=== PATIENT | male | born 1995 | race Caucasian/White ===

== ENCOUNTER 2017-03-29 10:59 | Emergency (ER) | payer OTHER ==
[2017-03-29 13:52] LABS: UA SPECIFIC GRAVITY 1.015 (1.005-1.035); microscopic required? YES; urine erythrocyte NEGATIVE (NEGATIVE)
[2017-03-29 13:59] VITALS: BP 120/79
== END 2017-03-29 13:59 | disposition home or self-care (01) ==
LOC: ED 10:59
PROVIDERS: Emergency Medicine
DX: R36.9 Urethral discharge, unspecified (principal); R30.0 Dysuria; R35.0 Frequency of micturition
CPT/HCPCS: 87491; 87591; J0696

== ENCOUNTER 2018-03-23 09:57 | Emergency (ER) | payer OTHER ==
[~2018-03-23] VITALS: Ht 162.6 cm; Wt 59.9 kg
[2018-03-23 10:01] VITALS: BP 131/74; Ht 162.6 cm; Wt 59.9 kg
== END 2018-03-23 10:28 | disposition home or self-care (01) ==
LOC: ED 09:57
DX: B00.89 Other herpesviral infection (principal)

== ENCOUNTER 2018-04-28 03:56 | Emergency (ER) | payer OTHER ==
[~2018-04-28] VITALS: Ht 165.1 cm; Wt 72.6 kg
[2018-04-28 04:04] VITALS: Ht 165.1 cm; Wt 72.6 kg
[2018-04-28 05:02] LABS: PLATELET COUNT 359 x10^3mcL (130-400); RED CELL DISTRIBUTION WIDTH 12.8 % (11.5-14.5)
[2018-04-28 05:16] LABS: CALCIUM 8.9 mg/dL (8.5-10.1); CARBON DIOXIDE 24.1 mmol/L (21-32); CHLORIDE SERUM 105 mmol/L (98-107); GFR1 > 60 mL/min; GLUCOSE SERUM 98 mg/dL (74-106); POTASSIUM SERUM 3.9 mmol/L (3.5-5.1); SODIUM SERUM 138 mmol/L (136-145)
[2018-04-28 05:22] LABS: ALBUMIN 4.2 g/dL (3.4-5.0); ALKALINE PHOSPHATASE 126 U/L (46-116); ALT/SGPT 18 U/L (16-63); AST/SGOT 27 U/L (15-37); BILIRUBIN TOTAL 0.64 mg/dL (0.20-1.00); TOTAL PROTEIN, SERUM 8.8 g/dL (6.4-8.2)
[2018-04-28 05:48] LABS: BAND NEUTROPHIL 7 % (0-10); METAMYELOCTE 3 % (0-2); MONOCYTE 7 % (0-7); SEGMENTED NEUTROPHILS 77 % (37-75)
[2018-04-28 05:49] LABS: PLATELET MORPHOLOGY LARGE PLATELET SEEN; rbc morphology (normal/abnorm) ABNORMAL (NORMAL)
[2018-04-28 06:25] LABS: AMPHETAMINE QUAL UR POSITIVE (See below)
[2018-04-28 13:16] VITALS: BP 96/52
== END 2018-04-28 13:17 | disposition home or self-care (01) ==
LOC: ED 03:56
PROVIDERS: Emergency Medicine
DX: T43.621A Poisoning by amphetamines, accidental (unintentional), initial encounter (principal); Z86.19 Personal history of other infectious and parasitic diseases; Y92.89 Other specified places as the place of occurrence of the external cause
CPT/HCPCS: 36415; G0480; J2060; J3490; J7030

== ENCOUNTER 2018-08-28 16:27 | Emergency (ER) | payer OTHER ==
[~2018-08-28] VITALS: Ht 165.1 cm; Wt 64.0 kg
[2018-08-28 16:50] VITALS: BP 113/60; Ht 165.1 cm; Wt 64.0 kg
== END 2018-08-28 18:50 | disposition home or self-care (01) ==
LOC: ED 16:27
DX: S63.501A Unspecified sprain of right wrist, initial encounter (principal); V00.131A Fall from skateboard, initial encounter; Y93.51 Activity, roller skating (inline) and skateboarding; Y92.89 Other specified places as the place of occurrence of the external cause; Y99.8 Other external cause status

== ENCOUNTER 2018-08-29 00:52 | Emergency (ER) | payer OTHER ==
[~2018-08-29] VITALS: Ht 165.1 cm; Wt 74.8 kg
[2018-08-29 01:13] VITALS: Ht 165.1 cm; Wt 74.8 kg
== END 2018-08-29 02:04 | disposition home or self-care (01) ==
LOC: ED 00:52
DX: S63.501A Unspecified sprain of right wrist, initial encounter (principal); V00.131A Fall from skateboard, initial encounter; Y93.51 Activity, roller skating (inline) and skateboarding; Y92.89 Other specified places as the place of occurrence of the external cause; Y99.8 Other external cause status

== ENCOUNTER 2018-09-05 08:00 | Emergency (ER) | payer OTHER ==
[~2018-09-05] VITALS: Ht 165.1 cm; Wt 64.4 kg
[2018-09-05 08:07] VITALS: Ht 165.1 cm; Wt 64.4 kg
[2018-09-05 09:04] VITALS: BP 115/86
[2018-09-05 09:08] LABS: BASOPHIL % 0.6 % (0-2); RED CELL DISTRIBUTION WIDTH 12.8 % (11.5-14.5)
[2018-09-05 09:09] LABS: PLATELET COUNT 403 x10^3mcL (130-400)
== END 2018-09-05 10:05 | disposition home or self-care (01) ==
LOC: ED 08:00
PROVIDERS: Emergency Medicine
DX: S63.501A Unspecified sprain of right wrist, initial encounter (principal); S63.602A Unspecified sprain of left thumb, initial encounter; F17.210 Nicotine dependence, cigarettes, uncomplicated; Z71.6 Tobacco abuse counseling; V00.131A Fall from skateboard, initial encounter; Y93.51 Activity, roller skating (inline) and skateboarding; Y92.331 Roller skating rink as the place of occurrence of the external cause; Y99.8 Other external cause status
CPT/HCPCS: 36415; 99406

== ENCOUNTER 2018-09-13 22:30 | Emergency (ER) | payer OTHER ==
[~2018-09-13] VITALS: Ht 165.1 cm; Wt 63.0 kg
[2018-09-13 22:35] VITALS: Ht 165.1 cm; Wt 63.0 kg
[2018-09-14 00:46] LABS: microscopic required? YES; urine erythrocyte 1+ (NEGATIVE)
[2018-09-14 00:59] VITALS: BP 136/80
== END 2018-09-14 00:59 | disposition home or self-care (01) ==
LOC: ED 22:30
PROVIDERS: Specialist
DX: A60.00 Herpesviral infection of urogenital system, unspecified (principal)
CPT/HCPCS: 87491; 87591; J0696

== ENCOUNTER 2019-01-11 15:29 | Emergency (ER) | payer OTHER ==
[~2019-01-11] VITALS: Ht 165.1 cm; Wt 64.9 kg
[2019-01-11 15:37] VITALS: BP 136/88; Ht 165.1 cm; Wt 64.9 kg
== END 2019-01-11 16:37 | disposition left against medical advice (07) ==
LOC: ED 15:29
DX: Z53.21 Procedure and treatment not carried out due to patient leaving prior to being seen by health care provider (principal)

== ENCOUNTER 2019-01-12 12:35 | Emergency (ER) | payer OTHER | END 2019-01-12 13:26 | disposition left against medical advice (07) | LOC: ED 12:35 | DX: Z53.21 Procedure and treatment not carried out due to patient leaving prior to being seen by health care provider (principal) | CPT/HCPCS: 87491; 87591 ==